=== PATIENT | male | born 1990 | race African-American/Black ===

== ENCOUNTER 2024-05-12 13:57 | Outpatient (CLI) | payer BC ==
[2024-05-12 15:37] LABS: #Basophils 0.04 10x3/uL (0.0-0.2); #Eosinophils 0.29 10x3/uL (0.0-0.5); #Monocytes 0.65 10x3/uL (0.0-1.1); #Neutrophils 3.54 10x3/uL (1.5-8.4); %Basophils 0.6 % (0.0-2.0); %Eosinophils 4.6 % (0.0-6.0); %Lymphocytes 27.8 % (18.0-47.0); %Monocytes 10.3 % (0.0-10.0); %Neutrophils 56.4 % (40.0-75.0); Hematocrit 42.5 % (38.8-50.0); Hemoglobin 13.3 g/dL (13.5-17.5); Mean Corpuscular HGB CONC 31.3 g/dL (32.0-36.0); Mean Corpuscular Hemoglobin 27.3 pg (27.0-33.0); Mean Corpuscular Volume 87.1 fL (81.2-95.1); Mean Platelet Volume 10.6 fL (7.4-10.4); Platelet Count 340 10x3/uL (150-450); RBC Distribution Width 14.3 % (11.5-14.5); Red Blood Cell (RBC) Count 4.88 10x6/uL (4.32-5.72); White Blood Cell (WBC) Count 6.3 10x3/uL (3.5-10.5)
[2024-05-12 15:56] LABS: Anion Gap 13 mmol/L (10-20); BUN (Urea Nitrogen) 19 mg/dL (8.9-20.6); Calc. Creatinine Clearance 0 mL/min (70-130); Calcium 9.6 mg/dL (7.8-10.44); Carbon Dioxide 27 mmol/L (22-29); Chloride 104 mmol/L (98-107); Estimated GFR 62; Glucose 107 mg/dL (70-105); Potassium 4.6 mmol/L (3.5-5.1); Sodium 139 mmol/L (136-145)
== END 2024-05-12 13:58 | disposition home or self-care (01) ==
LOC: CSHLAB 13:57
PROVIDERS: ATTEND Surgery
DX: Z01.818 Encounter for other preprocedural examination (principal)
CPT/HCPCS: 80048; 85025; 93005; 93010

== ENCOUNTER 2024-05-16 08:55 | Day surgery (SDC) | payer BC ==
[2024-05-12 14:51] VITALS: BMI 43.2
[2024-05-16] MEDS ORDERED: Lidocaine 2% MPF 10 ML AMP (For Epidural Use) ONE (10:05)
[2024-05-16] MEDS ORDERED: Bupivacaine HCl 0.5%/Epinephrine 1:200,000/PF 30 ml Vial ONE (10:05)
[2024-05-16] MEDS ORDERED: Ondansetron PF 4 MG/2 ML Vial ONE ×2 (10:41→11:58)
[2024-05-16] MEDS ORDERED: fentaNYL 50 mcg/mL 1 mL Vial ONE ×3 (10:41→13:16)
[2024-05-16] MEDS ORDERED: PROPOFOL 20 ML ONE (10:41)
[2024-05-16] MEDS ORDERED: Dexamethasone 4 mg/ml Vial ONE ×2 (10:41→11:58)
[2024-05-16] MEDS ORDERED: Sodium Chloride 0.9% 10 ML ONE (10:44)
[2024-05-16] MEDS ORDERED: CEFAZOLIN 2 GM VIAL ONE (11:23)
[2024-05-16] MEDS ORDERED: Mupirocin 2% Ointment 22 GM Tube ONE (11:36)
[2024-05-16] MEDS ORDERED: PHENYLEPHRINE-NS 100 MCG/ML 10 ML SYRINGE ONE (11:59)
[2024-05-16] MEDS ORDERED: Vasopressin 20 UNITS/ML VIAL ONE ×2 (12:18→12:30)
[2024-05-16] MEDS ORDERED: ePHEDrine Sulfate 50 MG/10 ML VIAL ONE (12:31)
== END 2024-05-16 15:00 | disposition home or self-care (01) ==
LOC: CSHSDC 08:55
PROVIDERS: ATTEND Surgery
PROC: 0HB0XZZ Excision of Scalp Skin, External Approach (ICD-10-PCS; principal; 2024-05-16)
DX: L72.0 Epidermal cyst (principal); I10 Essential (primary) hypertension; Z79.899 Other long term (current) drug therapy; Z79.84 Long term (current) use of oral hypoglycemic drugs; Z79.2 Long term (current) use of antibiotics; Z88.5 Allergy status to narcotic agent; E07.9 Disorder of thyroid, unspecified; Z98.890 Other specified postprocedural states; E11.9 Type 2 diabetes mellitus without complications
CPT/HCPCS: 88304; J1100; J2405; J2704; J3010